=== PATIENT | male | born 1960 | race Caucasian/White ===

== ENCOUNTER → 2023-05-15 | Outpatient (CLI) | payer MEDICARE, OTHER ==
--- NOTE | 2023-05-15 16:34 | Diagnostic Imaging Report ---
HISTORY: Bilateral hand pain. COMPARISON: None TECHNIQUE: 3 views of the bilateral hands. FINDINGS: Right hand: No acute fracture seen in the right hand. Alignment is normal. There are severe degenerative change at the basal joints of the thumb. There is severe degenerative change in the 2nd and 5th DIP joints. There is moderate degenerative change in the 4th DIP joint. No erosions are seen. Left hand: No acute fracture is seen in the left hand. There are moderate degenerative changes at the basal joints of the thumb. There is severe degenerative change in the 4th and 5th DIP joints and moderate degenerative change in the 2nd and 3rd DIP joints. No erosions are seen. IMPRESSION: 1. 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 Dictated by: Dictated on workstation # [id number]
== END ==
LOC: ORTHO 09:29
PROVIDERS: ATTEND Orthopaedic Surgery
DX: M19.042 Primary osteoarthritis, left hand (principal); M19.041 Primary osteoarthritis, right hand
CPT/HCPCS: 20551; 73130; G0463

== ENCOUNTER 2023-05-18 05:36 | Outpatient (CLI) | payer MEDICARE, OTHER ==
[~2023-05-18] VITALS: Ht 185.4 cm; Wt 98.4 kg
[2023-05-18] MEDS ORDERED: TADA10TA14 PO (13:43)
[2023-05-18] MEDS ORDERED: GLUC-219 PO (13:43)
[2023-05-18] MEDS ORDERED: ESOM5SUS PO (14:00)
== END 2023-05-18 15:00 | disposition home or self-care (01) ==
LOC: PREOP 05:36
PROVIDERS: ATTEND Orthopaedic Surgery
DX: Z01.818 Encounter for other preprocedural examination (principal)

== ENCOUNTER 2023-05-25 06:30 | Day surgery (SDC) | payer MEDICARE, OTHER ==
[~2023-05-25] VITALS: Ht 185 cm; Wt 98.4 kg
[2023-05-25] VITALS (7 sets, daily range): BP systolic 104–156; BP diastolic 57–88
[~2023-05-25 06:30] MED LIST: ESOM5SUS PO; GLUC-219 PO; TADA10TA14 PO
[2023-05-25] MEDS ORDERED: MIDAZOLAM INJ 2 MG/2 ML VIAL ONE (07:00)
[2023-05-25] MEDS ORDERED: fentaNYL INJECTION 100 MCG/2 ML VIAL ONE (07:00)
[2023-05-25] MEDS ORDERED: LACTATED RINGERS 1,000 ML 1,000 ML IV PRN (07:00)
[2023-05-25] MEDS ORDERED: ceFAZolin INJECTION 2,000 MG in NS (IVPB) 50 ML 50 ML IV ONE (07:00)
[2023-05-25] MEDS ORDERED: LIDOCAINE 1% INJ 20 ML VIAL ONE (07:45)
[2023-05-25] MEDS ORDERED: BUPIVACAINE 0.25% 30 ML VIAL ONE (07:46)
--- NOTE | 2023-05-25 07:47 | Progress Note-Pre Operative ---
Pre-Operative Progress Note Date of Available H&P: May 15, 2023 Date H&P Reviewed: May 25, 2023 Time H&P Reviewed: 07:40 History & Physical: H&P Reviewed, Patient Examed, No changes noted Pre-Operative Diagnosis: Right Middle and Ring Trigger Fingers MELINA VALDES MD May 25, 2023 07:47
[2023-05-25] MEDS ORDERED: ONDANSETRON INJECTION 4 MG/2 ML (SDV) ONE ×2 (08:03→08:18)
[2023-05-25] MEDS ORDERED: Neomycin/Polymixin/Bacitracin OINTMENT 15 GM ONE (08:29)
--- NOTE | 2023-05-25 08:39 | Operative Report - Ortho ---
Operative Report Surgeon (s)/Second Mate (s) Surgeon MELINA VALDES MD Second Mate n/a Pre-Operative Diagnosis Right Middle and Ring Trigger Fingers Post-Operative Diagnosis same Operative Report Date of Procedure: May 25, 2023 Name of Procedure Performed: Release of Right Middle and Ring Trigger Fingers Description & Findings After obtaining informed consent and marking the patient in the preoperative holding area, patient was administered IV antibiotics. Patient was taken to the operating room and sedation was administered. Surgical timeout was taken. Local anesthetic was delivered to the surgical sites under sterile conditions. Right upper extremity was prepped and draped in the usual sterile fashion. Attention was initially turned to the middle finger, incision was made over the A1 deborah. Blunt dissection was carried down the deborah. Beginning distally and working proximally, the deborah was released with tenotomy scissors. Tendon was explored and demonstrated no damage. Tendon excursion was examined and demonstrated no resistance, no catching. Site was irrigated with normal saline and repaired with 4-0 nylon suture. Attention was then turned to the ring finger, incision was made over the A1 deborah. Blunt dissection was carried down the deborah. Beginning distally and working proximally, the deborah was released with tenotomy scissors. Tendon was explored and demonstrated no damage. Tendon excursion was examined and demonstrated no resistance, no catching. Site was irrigated with normal saline and repaired with 4-0 nylon suture. Wounds were dressed with antibiotic ointment, xeroform, 4x4 fluffs, corbin, and SANTOS wrap. Patient tolerated the procedure well and was stable to the recovery area. Anesthesia Type Local plus MAC Estimated Blood Loss minimal Specimen(s) collected/removed None MELINA VALDES MD May 25, 2023 08:39
[2023-05-25] MEDS ORDERED: OXC5T PO (08:42)
--- NOTE | 2023-05-25 08:42 | Anesthesia-General Post-Op ---
MAC Patient Condition Mental Status/LOC: Same as Preop Cardiovascular: Satisfactory Nausea/Vomiting: Absent Respiratory: Satisfactory Pain: Controlled Complications: Absent Post Op Complications Complications None Follow Up Care/Instructions Patient Instructions None needed. Anesthesiology Discharge Order Discharge Order Patient is doing well, no complaints, stable vital signs, no apparent adverse anesthesia problems. No complications reported per nursing. YANETH FELIX CRNA May 25, 2023 08:42
[2023-05-25] MEDS ORDERED: ONDANSETRON INJECTION 4 MG/2 ML (SDV) IVP PRN (08:45)
[2023-05-25] MEDS ORDERED: fentaNYL INJECTION 100 MCG/2 ML VIAL IVP ONE (08:45)
[2023-05-25] MEDS ORDERED: morphine INJ 10 MG/ML 1ML (SYR OR VIAL) IVP ONE (08:45)
== END 2023-05-25 09:40 | disposition home or self-care (01) ==
LOC: SDC 06:30
PROVIDERS: ATTEND Orthopaedic Surgery
DX: M65.341 Trigger finger, right ring finger (principal); M65.331 Trigger finger, right middle finger; M65.342 Trigger finger, left ring finger
CPT/HCPCS: 87081